=== PATIENT | female | born 1975 | race Asian ===

== ENCOUNTER 2020-08-07 04:28 | Emergency (ER) | payer MEDICAID ==
[2020-08-07 04:35] VITALS: BP 137/84
[2020-08-07 05:29] LABS: Basophils % (Auto) 0.4 % (0.0-1.8); Eosinophils % (Auto) 0.3 % (0.0-4.3); Hematocrit 39.2 % (30.3-42.9); Hemoglobin 12.7 gm/dl (10.1-14.3); Lymphocytes # (Auto) 2.1 K/mm3 (1.2-5.4); Lymphocytes % (Auto) 31.3 % (13.4-35.0); Mean Corpuscular HGB Conc 33 % (30-34); Mean Corpuscular Volume 82 fl (79-97); Monocytes # (Auto) 0.5 K/mm3 (0.0-0.8); Monocytes % (Auto) 7.1 % (0.0-7.3); Platelet Count 225 K/mm3 (140-440); Red Blood Count 4.79 M/mm3 (3.65-5.03); Red Cell Distribution Width 15.4 % (13.2-15.2)
[2020-08-07 05:45] LABS: BUN/Creatinine Ratio 18; Blood Urea Nitrogen 14 mg/dL (7-17); Calcium 9.8 mg/dL (8.4-10.2); Hemolysis Index 1
[2020-08-07 06:51] LABS: Bilirubin,Urine NEG (Negative); Blood,Urine NEG (Negative); Color,Urine Yellow (Yellow); Mucus,Urine FEW /HPF; Protein,Urine <15 mg/dL mg/dL (Negative); Urobilinogen,Urine < 2.0 mg/dL (<2.0)
[2020-08-07 07:02] LABS: Amphetamine Screen,Urine Negative; Benzodiazepines Screen,Urine Negative; Cannabinoid Screen,Urine Negative; Cocaine Screen,Urine Negative; Methadone Screen,Urine Negative; Opiate Screen,Urine Negative
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
[2020-08-07 07:30] LABS: HCG Qualitative,Urine Negative (Negative)
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
== END 2020-08-07 13:04 ==
LOC: ED 04:28
DX: S09.90XA Unspecified injury of head, initial encounter (principal); R45.851 Suicidal ideations; Z72.89 Other problems related to lifestyle; X58.XXXA Exposure to other specified factors, initial encounter; Y93.89 Activity, other specified; Y92.89 Other specified places as the place of occurrence of the external cause; Y99.8 Other external cause status
CPT/HCPCS: 36415; 70450; 80048; 80307; 80320; 81001; 81025; 85025; 99284; G0480

== ENCOUNTER 2021-02-11 19:37 | Outpatient (CLI) | payer MEDICAID ==
--- NOTE | 2021-02-11 22:14 | Ultrasound Report ---
US OB limited INDICATION / CLINICAL INFORMATION: no care, [place]. COMPARISON: None available. FINDINGS: 2 images were obtained. No gestational sac is seen within the uterus. IMPRESSION: 1. No sonographic evidence of intrauterine on these 2 images. Signer Name: Mehrdad Brito MD Signed: 02/11/2021 10:10 PM Workstation Name: [id number]
== END 2021-02-11 21:52 | disposition home or self-care (01) ==
LOC: TRG 19:37 → APU 19:38 → TRG 21:52
PROVIDERS: ATTEND Obstetrics & Gynecology
DX: O26.893 Other specified pregnancy related conditions, third trimester (principal); R10.30 Lower abdominal pain, unspecified; M54.9 Dorsalgia, unspecified; R10.2 Pelvic and perineal pain; Z3A.28 28 weeks gestation of pregnancy
CPT/HCPCS: 76815; 76857